=== PATIENT | female | born 1945 | race Caucasian/White ===

== ENCOUNTER → 2017-12-14 | Outpatient (CLI) | payer MEDICARE, BC | LOC: MAMMO 12-01 13:00 | DX: Z12.31 Encounter for screening mammogram for malignant neoplasm of breast (principal) ==

== ENCOUNTER → 2023-03-17 | Day surgery (SDC) | payer MEDICARE, BC | END | disposition home or self-care (01) | LOC: MSO 10:00 | DX: H25.812 Combined forms of age-related cataract, left eye (principal) | CPT/HCPCS: 00142; J0171; J2250; V2632 ==

== ENCOUNTER → 2023-05-19 | Day surgery (SDC) | payer MEDICARE, BC ==
[~2023-05-19] MED LIST: Balanced Salt Ophth Irrig 15 ML BOTTLE *BULK OP SCH; CYCLOPENTOLATE 1% OP SCH; EPINEPHrine 1 MG/ML (1:1000) 1 ML AMP IR SCH; Ketorolac 0.5% Ophth Soln 5 ML Bottle *BULK OP SCH; Midazolam 2 MG/2 ML VIAL IV ONE; Phenylephrine 10% Ophth Soln 5 ML BOTTLE *BULK OP SCH; Polymyxin B Sulfate/Trimethoprim Ophth Soln 10 ML BOTTLE *BULK OP SCH; Povidone Iodine 5% Ophth Soln 30 ML BOTTLE *BULK OP SCH; Proparacaine 0.5% Ophth Soln 15 ML BOTTLE *BULK OP SCH; Tropicamide 1% Ophth Soln Bottle *BULK OP SCH
== END | disposition home or self-care (01) ==
LOC: MSO 09:41
DX: H25.813 Combined forms of age-related cataract, bilateral (principal); H35.3130 Nonexudative age-related macular degeneration, bilateral, stage unspecified; H35.371 Puckering of macula, right eye; Z85.828 Personal history of other malignant neoplasm of skin
CPT/HCPCS: 00142; J0171; J2250; V2632